=== PATIENT | male | born 1960 | race Caucasian/White ===

== ENCOUNTER 2022-08-14 13:55 | Outpatient (CLI) | payer OTHER, SELFPAY ==
--- NOTE | ~2022-08-14 | PE_ITS ---
EXAMINATION: PET_PETPSMAST_PT DATE: 08/14/2022 16:29 INDICATION: Prostate cancer TECHNIQUE: 7.688 mCi of pipflufolastat F-18 (18-F-DCFPyL) was administered i.v. Low dose computed to mography (CT) images were acquired from the base of the brain to the base of the brain to the proxima l thighs for attenuation correction and anatomic localization. Positron emission tomography (PET) svitlana ges were acquired in the same distribution beginning 102 minutes after injection. Images including fu sed PET/CT images were reconstructed in axial, coronal, and sagittal planes. Automated exposure contr ol technique was employed. The dose-length product was 632.33mGy-cm. COMPARISON: None FINDINGS: Head/neck: Typical pattern of symmetric physiologic increased activity in the lacrimal, parotid and submandibula r glands as well as along the mucosa of the nasal and oral cavities, the osmany-, naso- and hypopharynx, the glottis and esophagus. No pathologically enlarged cervical lymphadenopathy or suspicious foci of increased uptake in the visualized head or neck. Chest: No suspicious pulmonary nodules, pneumonia, pulmonary edema or pleural effusion. Heart size is normal . No pericardial effusion. Thoracic aorta is normal in caliber. Mild activity associated with a kiarra l sized and appearing precarinal lymph node which measures 8 mm in maximal short axis diameter with c entral fatty hilum and with maximal SUV of 4.2. There is a second smaller prevascular lymph node with maximal SUV of 3.8. No other suspicious pathologically enlarged or more significantly PSMA avid thor acic lymphadenopathy. Abdomen/pelvis/proximal thighs: Physiologic renal accumulation and excretion of activity in the kidneys, bladder and along portions o f ureters. Postoperative change of prior prostatectomy with no evident residual or locally recurrent disease. Photopenic defect associated with a 10 cm left renal cyst. Normal degree and slightly hetero genous pattern of increased uptake throughout the liver and spleen without radiologic correlate or do minant PSMA avid lesion. The gallbladder, pancreas and bilateral adrenal glands are normal. Moderate uptake scattered throughout the bowels with typical duodenal and proximal jejunal predominance and wi thout radiologic correlate, also likely physiologic. Postoperative change of prior ventral hernia mes h repair. Likely vasectomy clip at the base of the right hemiscrotum. Subcentimeter retroperitoneal f ocus of mild PSMA activity with maximal SUV of 5.4 situated along the posterior margin of the infrare nal aorta at the level of the bifurcation without a discretely identifiable lymph node separate from the vessels. No other abnormal foci of increased uptake or pathologically enlarged lymphadenopathy in the abdomen, pelvis or proximal thighs. Musculoskeletal: Mild S-shaped curvature of the lumbar spine with severe spondylosis. Moderate bilateral hip osteoarth ritis. No suspicious lytic, blastic or PSA may avid bone lesions. IMPRESSION: 1. Very mild PSMA activity of lower intensity than the liver and spleen associated with a couple norm al-sized mediastinal lymph nodes and likely normal-sized para-aortic lymph nodes in the abdomen which is equivocal for very early metastatic disease versus reactive lymph nodes. No other lesions suspici ous for metastatic disease. Reviewed, dictated and finalized at location A. IMPRESSION: 1. Very mild PSMA activity of lower intensity than the liver and spleen associa wilver with a couple normal-sized mediastinal lymph nodes and likely normal-sized para-aortic lymph nodes in the abdomen which is equivocal for very early metast atic disease versus reactive lymph nodes. No other lesions suspicious for metas tatic disease.
== END 2022-08-14 13:56 | disposition home or self-care (01) ==
PROVIDERS: Visit Provider Urology
DX: C61 Malignant neoplasm of prostate (principal)
CPT/HCPCS: 78815; A9595

== ENCOUNTER 2022-11-20 12:24 | Outpatient (CLI) | payer OTHER, SELFPAY ==
--- NOTE | ~2022-11-20 | PE_ITS ---
EXAMINATION: PET_PETPSMAST_PT DATE: 11/20/2022 15:18 INDICATION: Prostate cancer TECHNIQUE: 8.229 mCi of pipflufolastat F-18 (18-F-DCFPyL) was administered i.v. Low dose computed to mography (CT) images were acquired from the base of the brain to the base of the brain to the proxima l thighs for attenuation correction and anatomic localization. Positron emission tomography (PET) svitlana ges were acquired in the same distribution beginning 106 minutes after injection. Images including fu sed PET/CT images were reconstructed in axial, coronal, and sagittal planes. Automated exposure contr ol technique was employed. The dose-length product was 520.90mGy-cm. COMPARISON: 08/14/2022 FINDINGS: Head/neck: Typical pattern of symmetric physiologic increased activity in the lacrimal, parotid and submandibula r glands as well as along the mucosa of the nasal and oral cavities, the osmany-, naso- and hypopharynx, the glottis and esophagus. Symmetric mild physiologic uptake in the neural ganglia at the neural for vega. Tiny focus of moderate uptake with maximal SUV of 13.3 along the left jugular chain at the lev el of the cricoid cartilage likely associated with one of several tiny lymph nodes in this region. Th ere are 3 additional tiny foci of mild increased uptake with maximal SUV values of between 2.9 and 3. 8 more caudally along the jugular chains, 2 on the right and one on the left also in the region of a few tiny likely lymph nodes. No pathologically enlarged cervical lymphadenopathy. Chest: Interval increase in PSMA uptake associated with several normal sized mediastinal lymph nodes. The th e largest and most intense is associated with a precarinal lymph node with maximal SUV of 8.8, previo usly 4.2 and unchanged in size measuring 8 mm in short axis diameter with central fatty hilum. Also w ith increased uptake are couple prevascular lymph nodes with maximal SUV 4 the more PSMA avid lymph n ode increasing from 3.8 to 6.8. There are couple more cephalad right paratracheal lymph nodes the mos t intense with maximal SUV of 5.8, increased from 2.7. There are also 2 tiny foci of increased uptake with maximal SUV of 5.1, increased from 2.7 at the left hilum. These lymph nodes along remain well w ithin normal limits in size and too small to assess for any interval change in size. No pathologicall y enlarged thoracic lymphadenopathy. Lungs are clear with no suspicious pulmonary nodules, pulmonary edema, pneumonia or other pulmonary infiltrates or pleural effusion. Heart size is normal. No pericar dial effusion. Thoracic aorta is normal in caliber. Abdomen/pelvis/proximal thighs: Physiologic renal accumulation and excretion of activity in the kidneys, bladder and along portions o f ureters. Photopenic defect associated with an unchanged 10 cm left renal cyst. Postoperative change of prior prostatectomy without evident residual or locally recurrent disease. Normal degree and slig htly heterogenous pattern of increased uptake throughout the liver and spleen without radiologic sonya elate or dominant PSMA avid lesion. The gallbladder, pancreas and bilateral adrenal glands are normal . Moderate uptake scattered throughout the bowels with typical duodenal and proximal jejunal predomin ance and without radiologic correlate, also likely physiologic. There are 3 subcentimeter foci of mil d increased uptake along the bilateral common iliac chains, the 2 on the left with maximal SUV of 5.4 and 4.2 and on the right with maximal SUV of 4.2. No pathologically enlarged abdominal or pelvic lym phadenopathy. Musculoskeletal: Mild S-shaped curvature of the lumbar spine with severe spondylosis. Moderate bilateral hip osteoarth ritis. Small focus of mild increased uptake with maximal SUV of 5.2 cm at the right pedicle of L3 whi ch is without radiologic correlate. No other suspicious lytic, blastic or PSMA avid bone lesions. IMPRESSION: 1. Interval increase in now mild
== END 2022-11-20 12:25 | disposition home or self-care (01) ==
PROVIDERS: Visit Provider Urology
DX: C61 Malignant neoplasm of prostate (principal)
CPT/HCPCS: 78815; A9595